=== PATIENT | female | born 1975 | race Caucasian/White ===

== ENCOUNTER → 2022-03-26 16:03 | Outpatient (CLI) | payer BC, SELFPAY ==
--- NOTE | ~2022-03-26 | MM_ITS ---
EXAMINATION: MM scrn shemar implant BI w vanessa HISTORY: Screening mammogram TECHNIQUE: Craniocaudal and mediolateral oblique 3-D tomosynthesis images with implant displacement a nd synthetic 2-D images were generated. Craniocaudal and mediolateral oblique views of the breasts wi thout implant displacement were obtained using full field digital mammography. CAD analysis was submi tted and interpreted. COMPARISON: 07/02/2009 bilateral implant screening mammogram BREAST PARENCHYMAL COMPOSITION: The breasts are heterogeneously dense, which may obscure small masses . FINDINGS: Status post bilateral augmentation mammoplasty. There is no evidence of suspicious mass, ca lcification, or architectural distortion to suggest malignancy in either breast. There has been no nur spicious interval change. IMPRESSION: 1. No mammographic evidence of malignancy. 2. Recommend routine screening mammography in one year. BI-RADS Category 1: Negative Reviewed, dictated and finalized at location A. [employer]
== END ==
PROVIDERS: PCP Family Medicine; Visit Provider Physician Assistant
DX: Z12.31 Encounter for screening mammogram for malignant neoplasm of breast (principal)
CPT/HCPCS: 77063; 77067

== ENCOUNTER 2023-07-28 11:28 | Outpatient (CLI) | payer BC, SELFPAY ==
--- NOTE | ~2023-07-28 | MM_ITS ---
EXAMINATION: MM scrn shemar implant BI w vanessa HISTORY: Screening mammogram TECHNIQUE: Craniocaudal and mediolateral oblique 3-D tomosynthesis images with implant displacement a nd synthetic 2-D images were generated. Craniocaudal and mediolateral oblique views of the breasts wi thout implant displacement were obtained using full field digital mammography. CAD analysis was submi tted and interpreted. COMPARISON: 03/26/2022, 07/02/2009 mammogram examinations BREAST PARENCHYMAL COMPOSITION: The breasts are heterogeneously dense, which may obscure small masses . FINDINGS: Status post bilateral augmentation mammoplasty. There is no evidence of suspicious mass, ca lcification, or architectural distortion to suggest malignancy in either breast. There has been no nur spicious interval change. IMPRESSION: 1. No mammographic evidence of malignancy. 2. Recommend routine screening mammography in one year. BI-RADS Category 1: Negative Reviewed, dictated and finalized at location A.
== END 2023-07-28 11:29 ==
LOC: MICIMG 11:29
PROVIDERS: PCP Family Medicine; Visit Provider Nurse Practitioner
DX: Z12.31 Encounter for screening mammogram for malignant neoplasm of breast (principal)
CPT/HCPCS: 77063; 77067

== ENCOUNTER 2024-10-09 13:57 | Outpatient (CLI) | payer BC, SELFPAY ==
--- NOTE | ~2024-10-09 | MM_ITS ---
EXAMINATION: MM scrn shemar implant BI w vanessa HISTORY: Screening mammogram TECHNIQUE: Craniocaudal and mediolateral oblique 3-D tomosynthesis images with implant displacement a nd synthetic 2-D images were generated. Craniocaudal and mediolateral oblique views of the breasts wi thout implant displacement were obtained using full field digital mammography. CAD analysis was submi tted and interpreted. COMPARISON: Comparison to multiple prior studies sequentially, with oldest reviewed study dated 03/16. BREAST PARENCHYMAL COMPOSITION: Dense: The breasts are heterogeneously dense, which may obscure small masses FINDINGS: There is no evidence of suspicious mass, calcification, or architectural distortion to sugg est malignancy in either breast. There has been no suspicious interval change. IMPRESSION: 1. No mammographic evidence of malignancy. 2. Recommend routine screening mammography in one year. BI-RADS Category 1: Negative Reviewed, dictated and finalized at location A.
== END 2024-10-09 13:58 | disposition home or self-care (01) ==
LOC: MICIMG 13:58
PROVIDERS: PCP Nurse Practitioner; Visit Provider Nurse Practitioner
DX: Z12.31 Encounter for screening mammogram for malignant neoplasm of breast (principal); Z98.82 Breast implant status
CPT/HCPCS: 77063; 77067

== ENCOUNTER 2025-02-26 15:42 | Outpatient (CLI) | payer BC, SELFPAY ==
--- NOTE | ~2025-02-26 | XR_ITS ---
[id number] Indication: M54.2 - Cervicalgia Comparison: None Findings: Grade 1 anterolisthesis of C4 on C5, no fracture is identified. The disc heights are intact. Soft tissues unremarkable Impression: No acute abnormality. Reviewed, dictated and finalized at location P. Impression: No acute abnormality.
== END 2025-02-26 15:43 | disposition home or self-care (01) ==
LOC: MICIMG 15:43
PROVIDERS: PCP Family Medicine; Visit Provider Student in an Organized Health Care Education/Training Program
DX: M54.2 Cervicalgia (principal)
CPT/HCPCS: 72040